=== PATIENT | male | born 1955 | race Hispanic/Latino ===

== ENCOUNTER 2022-08-21 10:30 | Day surgery (SDC) | payer OTHER ==
[2022-08-17 15:11] LABS: Absolute Lymphocytes (CBC) 1.6 K/uL (0.7-4.9); Hematocrit 41.7 % (39.6-49.0); Lymphocytes % 25.4 % (15.3-44.8); MCV 90.1 fL (80-100); MPV 8.5 fL (7.6-11.3); RBC Red Blood Cell Count 4.63 M/uL (4.33-5.43)
[2022-08-17 15:14] LABS: Protime INR 1.02
[2022-08-17 15:19] LABS: Potassium 4.5 mEq/L (3.5-5.1)
--- NOTE | 2022-08-17 22:13 | RAD REPORT ---
EXAM DESCRIPTION: [facility] Pa And Lat (2 Views)08/17/2022 2:18 pm CLINICAL HISTORY: Pre op pending heart catheterization COMPARISON: CHEST SINGLE VIEW dated 09/23/2013; CHEST SINGLE VIEW dated 09/22/2013; CHEST PA AND LAT 2 VIEW dated 09/12/2010; CHEST PA AND LAT 2 VIEW dated 09/11/2010 TECHNIQUE: PA and lateral views of the chest. FINDINGS: The lungs are clear.Mild left basilar atelectasis No pneumothorax or effusion. The cardiom ediastinal contours are unremarkable. IMPRESSION: No acute cardiopulmonary process.
--- NOTE | 2022-08-18 15:36 | EKG ---
Test Date: 2022-08-17 Test Time: 13:56:29 Paper Bag Machine Operator: JEROD MEASUREMENT RESULTS: Intervals: Rate: 46 GA: 198 QRSD: 114 QT: 442 QTc: 386 [place]: P: 60 GA: 198 QRS: 56 T: 87 INTERPRETIVE STATEMENTS: Marked sinus bradycardia Abnormal ECG Compared to ECG 03/11/2022 13:41:59 Sinus rhythm no longer present Myocardial infarct finding no longer present Electronically Signed On 08-18-22 15:34:31 CDT by Donell Tran
[2022-08-21] MEDS ORDERED: NA CHLORIDE 0.9% 500 ML ONE (10:40)
[2022-08-21] MEDS ORDERED: LIDOCAINE 1% 20 ML MDV ONE (11:00)
[2022-08-21] MEDS ORDERED: HEPA 1000U/500MLS 2,000 UNIT/1,000 ML BAG IV ONE (11:00)
[2022-08-21] MEDS ORDERED: CLOPIDOGREL 75 MG TABLET ONE (12:27)
[2022-08-21] MEDS ORDERED: FENTANYL CITR 100 MCG/2 ML ONE (12:27)
[2022-08-21] MEDS ORDERED: VERAPAMIL HCL 10 MG/4 ML VIAL IV ONE (12:27)
[2022-08-21] MEDS ORDERED: MIDAZOLAM HCL 2 MG/2 ML INJ ONE (12:27)
[2022-08-21] MEDS ORDERED: HEPARIN 5000 UNIT/ML 1 ML VIAL ONE (12:27)
[2022-08-21] MEDS ORDERED: ASPIRIN 325 MG TAB ONE (12:28)
[2022-08-21] MEDS ORDERED: HEPARIN 10,000 UNIT/10 ML VIAL IV ONE (12:28)
[2022-08-21] MEDS ORDERED: ATROPINE SULF 1 MG/10 ML SYR IV ONE (12:28)
[2022-08-21] MEDS ORDERED: TICAGRELOR 90 MG TABLET PO ONE (12:28)
[2022-08-21 15:34] VITALS: BP 130/77; O2SAT 96
--- NOTE | 2022-08-21 20:05 | OP ---
Date of Procedure: 08/21/2022 Surgeon: RODGER ZAYAS Procedures Performed: 1.Selective coronary angiogram. 2.Left heart catheterization. Indication: Abnormal stress test. Access: Right radial artery 6-Hungarian closed with TR band. Complications: None. Estimated Blood Loss: Bleeding less than 20 mL. Description Of Procedure: After risks, benefits, and alternatives were explained, the patient agreed to procedure and signed informed consent. The patient was brought to the cardiac catheterization la boratory and prepped and draped in usual sterile fashion. We gave fentanyl and Versed in incremental doses to achieve adequate moderate sedation. Then, I accessed right radial artery using pediatric m icropuncture kit, placed a 6-Hungarian Slender sheath and took 5-Hungarian [place] 4 catheter into the aortic root, engaged left main and then right coronary artery and took standard views. Then the catheter w as pushed over the wire into the LV, measured the LVEDP and pullback did not record any gradient. Th en I removed the catheter and sheath and placed TR band with good hemostasis. Findings: 1.Left main: Large, normal. 2.LAD: Very large with mid 40% to 50% stenosis. Normal diagonal branches and then LAD becomes with luminal irregularities and gives a very large collateral to the PDA. 3.Left circumflex: Mid 40%. OM is large and normal and then there are luminal irregularities. It is a codominant circulation. 4.RCA: Codominant circulation with proximal 80% and then after the RV branch, it becomes 100% occlu ded and then the patient is getting very good collaterals from the LAD. 5.LVEDP is normal at 8 mmHg. Conclusion: 1.Severe right coronary artery stenosis, which becomes chronic total occlusion, but with good collat erals from the left side. 2.Moderate coronary artery disease otherwise. 3.Normal left ventricular end-diastolic pressure. Recommendation: Medical management. SR/MODL Voice ID: [id number] Report ID: [id number]
== END 2022-08-21 15:35 | disposition home or self-care (01) ==
LOC: CCL 10:30
PROVIDERS: ATTEND Internal Medicine
DX: I25.10 Atherosclerotic heart disease of native coronary artery without angina pectoris (principal); I25.82 Chronic total occlusion of coronary artery; I10 Essential (primary) hypertension; E78.2 Mixed hyperlipidemia; Z95.5 Presence of coronary angioplasty implant and graft; Z87.891 Personal history of nicotine dependence; Z79.82 Long term (current) use of aspirin; Z79.899 Other long term (current) drug therapy; Z82.49 Family history of ischemic heart disease and other diseases of the circulatory system
CPT/HCPCS: 93005; 85025; 80048; 36415; 85610; 85730; 71046; 93458; 76937; C1893; Q9966; J1644; J2001; J2250; J3010; J7040; J0461

== ENCOUNTER 2023-09-27 06:30 | Day surgery (SDC) | payer OTHER ==
[2023-09-23 15:02] LABS: Anion Gap 8.5 mEq/L (5.0-15.0); Potassium 4.5 mEq/L (3.5-5.1)
[2023-09-23 15:03] LABS: Absolute Basophils 0.1 K/uL (0-0.5); Absolute Eosinophils 0.2 K/uL (0-0.5); Absolute Lymphocytes (CBC) 1.8 K/uL (0.7-4.9); Absolute Monocytes 0.6 K/uL (0.1-1.3); Absolute Neutrophil 3.9 K/uL (1.8-8.0); Basophils % 1.3 % (0-1.3); Eosinophils % 2.4 % (0-4.4); Hematocrit 42.9 % (39.6-49.0); Lymphocytes % 27.7 % (15.3-44.8); MCH 29.7 pg (27.0-35.0); MCHC 32.6 g/dL (32.0-36.0); MCV 91.1 fL (80-100); Monocytes % 8.7 % (3.3-12.3); Neutrophils % 59.9 % (41.7-73.7); Platelets 309 thou/uL (152-406); RBC Red Blood Cell Count 4.72 M/uL (4.33-5.43); Red Cell Distribution Width 15.2 % (12.1-15.2)
[2023-09-23 15:08] LABS: PT Prothrombin Time 11.5 SECONDS (9.5-12.5); PTT, Activated Partial Thromb 32.1 SECONDS (24.3-36.9); Protime INR 1.05
--- NOTE | 2023-09-23 23:32 | RAD REPORT ---
EXAM DESCRIPTION: RAD - Chest Pa And Lat (2 Views) - 09/23/2023 2:38 pm CLINICAL HISTORY: pre op. History of myocardial ischemia COMPARISON: Chest Pa And Lat (2 Views) dated 08/17/2022; CHEST SINGLE VIEW dated 09/23/2013; CHEST SING LE VIEW dated 09/22/2013; CHEST PA AND LAT 2 VIEW dated 09/12/2010 TECHNIQUE: PA and lateral views of the chest were obtained. FINDINGS: The lungs are clear. Heart size is normal and central vasculature is within normal limits. No pleural effusion or pneumothorax seen. No acute bony finding noted. IMPRESSION: No acute cardiopulmonary process.
[2023-09-27] MEDS ORDERED: NA CHLORIDE 0.9% 500 ML ONE (07:10)
[2023-09-27 07:37] VITALS: TEMP 97.5
[2023-09-27] MEDS ORDERED: VERAPAMIL HCL 10 MG/4 ML VIAL IV ONE (07:42)
[2023-09-27] MEDS ORDERED: LIDOCAINE 1% 20 ML MDV ONE (07:42)
[2023-09-27] MEDS ORDERED: HEPA 1000U/500MLS 2,000 UNIT/1,000 ML BAG IV ONE (07:42)
[2023-09-27] MEDS ORDERED: TICAGRELOR 90 MG TABLET PO ONE (07:43)
[2023-09-27] MEDS ORDERED: FENTANYL CITR 100 MCG/2 ML ONE (07:43)
[2023-09-27] MEDS ORDERED: ATROPINE SULF 1 MG/10 ML SYR IV ONE (07:43)
[2023-09-27] MEDS ORDERED: HEPARIN 5000 UNIT/ML 1 ML VIAL ONE (07:43)
[2023-09-27] MEDS ORDERED: MIDAZOLAM HCL 2 MG/2 ML INJ ONE (07:43)
[2023-09-27] MEDS ORDERED: HEPARIN 10,000 UNIT/10 ML VIAL IV ONE (07:43)
[2023-09-27] MEDS ORDERED: NALOXONE 0.4 MG/ML VIAL ONE (07:44)
[2023-09-27] MEDS ORDERED: FLUMAZENIL 0.1 MG/ML (5 mL VIAL) IV ONE (07:44)
[2023-09-27] MEDS ORDERED: CLOPIDOGREL 75 MG TABLET ONE (07:44)
[2023-09-27] MEDS ORDERED: NITROGLYCERIN/D5W 50 MG/250 ML BTL IV ONE (07:46)
[2023-09-27 09:25] VITALS: O2SAT 99
[2023-09-27 12:17] VITALS: BP 149/99
--- NOTE | 2023-09-27 19:44 | OP ---
Date of Procedure: 09/27/2023 Surgeon: Geremias Hawkins Procedures Performed: 1.Left heart catheterization. 2.Coronary angiogram. Indication For Procedure: Dyspnea on exertion and abnormal stress test. Complication: None. Estimated Blood Loss: Less than 50 cc. Sedation Time: 30 minutes with 2 of Versed and 50 of fentanyl. Access: Right radial and right common femoral artery. Both were closed with a TR band and Angio-Sea l. Description Of Procedures: After risks, and benefits, and alternatives were explained to the patient , patient agreed to proceed with the procedure and signed informed consent. The patient was brought back to the cath laboratory technician, prepped and draped in sterile fashion. A time-out was performed. Sedation was administered. The right radial artery was obtained. Access was obtained using an ultrasound-guided micropuncture technique. The Chandler 4.0 catheter was advanced to the LV cavity. LVEDP was obtained. Pullback did not show any gradient. Chandler was used for engagement of the right coronary system, bu t due to significant tortuosity of the subclavian artery, the catheter was unable to engage the left coronary system, so the right common femoral artery access was obtained using an ultrasound-guided mi cropuncture technique. 6-[place] JL4 catheter was advanced to the left coronary artery system and mariela ges were obtained. At the end of procedure, the groin sheath was removed and Angio-Seal was applied and the radial sheath was removed and TR band was applied. Hemostasis was achieved. The patient was moved back to recovery in stable condition. Findings: 1.Left main is normal. 2.LAD, proximal to kind of mid segment diffuse 70% disease and mild luminal irregularities, gives co llaterals to the RPDA. 3.Left circ, proximal 60% to 70%, gives large OM1 and OM2. 4.RCA proximal 70% and mid TRANSPORTATION MAINTENANCE WORKER at the stent, distally it fills by [id number] collaterals into PDA . 5.LVEDP 13 mmHg. Assessment And Plan: 1.Significant proximal LAD disease. 2.Significant proximal left circumflex disease with large OM1, OM2. 3.Significant mid RCA TRANSPORTATION MAINTENANCE WORKER with [id number] collaterals into PDA. The plan is to consult CT Surgery to evaluate for the bypass. CASA/LUPE Voice ID: [id number] Report ID: [id number]
== END 2023-09-27 11:55 | disposition home or self-care (01) ==
LOC: CCL 06:30
PROVIDERS: ATTEND Internal Medicine Interventional Cardiology
DX: I25.10 Atherosclerotic heart disease of native coronary artery without angina pectoris (principal); I25.82 Chronic total occlusion of coronary artery; I10 Essential (primary) hypertension; E78.5 Hyperlipidemia, unspecified; I25.2 Old myocardial infarction; Z95.5 Presence of coronary angioplasty implant and graft; Z87.891 Personal history of nicotine dependence; Z79.82 Long term (current) use of aspirin; Z79.899 Other long term (current) drug therapy; Z82.49 Family history of ischemic heart disease and other diseases of the circulatory system
CPT/HCPCS: 85025; 80048; 36415; 85610; 85730; 71046; 93458; 76937; C1893; Q9966; C1760; G0269; J1644; J2001; J2250; J3010; J7040; 99152; 99153; J0461; J2310